=== PATIENT | male | born 1980 | race Caucasian/White ===

== ENCOUNTER → 2019-10-03 | Outpatient (CLI) | payer OTHER ==
[2015-04-08 23:58] VITALS: BP 152/80
[~2019-10-03] MED LIST: ACET325T9 PO; CLIN300C8 PO; IBUP400T18 PO
--- NOTE | 2019-10-03 17:37 | RAD ---
EXAM: Left ankle, 3 views. HISTORY: Pain. COMPARISON: None. FINDINGS: 3 views of the left ankle are obtained. There is no acute fracture, dislocation or subluxation. There is a tiny ossicle inferior to the lateral malleolus which is chronic in appearance and possibly due to the sequela of remote injury. There is soft tissue swelling. There is no osteochondral lesion. IMPRESSION: No acute osseous finding. Electronically signed by: Augusta Szymanski MD (10/03/2019 5:34 PM) [id number]
== END | disposition home or self-care (01) ==
LOC: DXRAD 14:19
PROVIDERS: ATTEND Physician Assistant
DX: M79.89 Other specified soft tissue disorders (principal)
CPT/HCPCS: 73610